=== PATIENT | male | born 1930 | race Caucasian/White ===

== ENCOUNTER 2016-10-20 11:10 | Emergency (ER) | payer MEDICARE, OTHER ==
[~2016-10-20] VITALS: Ht 162.6 cm; Wt 63.5 kg
--- NOTE | 2016-10-20 11:32 | PD ---
HPI Chief Complaint: abdominal pain and dizziness Time Seen by Provider: 11:19 Travel History International Travel<30 days: No Contact w/Intl Traveler<30days: No Traveled to known affect area: No History of Present Illness HPI This patient was at the office of [facility] and while checking out he became dizzy and lightheaded. They advised him to come to the emergency room. He has history of chronic epigastric pain for the last 3 months. He's had 4 CAT scans according to his and the last was yesterday in [place]. His abdominal pain and dizziness have improved at this time. He has seen GI for endoscopy/colonoscopy which is going to happen on 31 October. Symptoms severity at this time is mild. No alleviating factors. He has chronic A. fib on eliquis. No chest pain or syncope today. No alleviating factors. Duration of dizziness was 30 minutes. [facility] Social History Alcohol Use: No Tobacco Use: No Substance Use: No Allergies-Medications (Allergen,Severity, Reaction): Coded Allergies: No Known Allergies (Unverified , 10/20/16) Reported Meds & Prescriptions Reported Meds & Active Scripts Active Reported Terazosin (Terazosin HCl) 5 Mg Cap 5 Mg PO HS Zocor (Simvastatin) 40 Mg Tab 40 Mg PO HS Potassium Chloride CR (Potassium Chloride) 10 Meq Tab 10 Meq PO DAILY Omeprazole 20 Mg Cap 20 Mg PO DAILY Nystatin Topical (Nystatin) 100,000 unit/gm Cream 1 Applic TOPICAL BID Nitrostat SL (Nitroglycerin) 0.4 Mg Subl 0.4 Mg SL DIRECTED PRN 1 tablet under the tongue as needed for chest pain. Repeat every 5 minutes for a total of 3 DOSES or call 911 if NO relief. Metoprolol Tartrate 25 Mg Tab 12.5 Mg PO BID Metformin (Metformin HCl) 500 Mg Tab 500 Mg PO DAILY With a meal Memantine 10 Mg Tab 10 Mg PO BID Losartan (Losartan Potassium) 25 Mg Tab 25 Mg PO BID Furosemide 40 Mg Tab 40 Mg PO DAILY B-12 (Cyanocobalamin) 100 Mcg Tab 100 Mcg PO DAILY Benzonatate 100 Mg Cap 100 Mg PO BID PRN Aspirin 81 (Aspirin) 81 Mg Tabdr 81 Mg PO DAILY Tylenol Extra Strength (Acetaminophen) 500 Mg Tab 500 Mg PO TID PRN Review of Systems General / Constitutional: No: Fever Eyes: No: Visual changes HENT: Positive: Lightheadedness, No: Headaches Cardiovascular: No: Chest Pain or Discomfort Respiratory: No: Shortness of Breath Gastrointestinal: Positive: Abdominal Pain Genitourinary: No: Dysuria Musculoskeletal: No: Pain Skin: No Rash Neurologic: Positive: Dizziness, No: Weakness Psychiatric: No: Depression Endocrine: No: Polydipsia Hematologic/Lymphatic: No: Easy Bruising Physical Exam Narrative GENERAL: Well-nourished, well-developed patient in no apparent distress. SKIN: Warm and dry. HEAD: Atraumatic. Normocephalic. EYES: Pupils equal and round. No scleral icterus. No injection or drainage. ENT: No nasal bleeding or discharge. Mucous membranes pink and moist. NECK: Trachea midline. No JVD. CARDIOVASCULAR: Regular rate and rhythm. No murmur appreciated. RESPIRATORY: No accessory muscle use. Clear to auscultation. Breath sounds equal bilaterally. GASTROINTESTINAL: Abdomen soft, epigastrium is some tenderness without rebound or guarding , nondistended. Hepatic and splenic margins not palpable. MUSCULOSKELETAL: No obvious deformities. No clubbing. No cyanosis. No edema. NEUROLOGICAL: Awake and alert. No obvious cranial nerve deficits. Motor grossly within normal limits. Normal speech. PSYCHIATRIC: Appropriate mood and affect; insight and judgment normal. Data Data Last Documented VS Vital Signs Date Time Temp Pulse Resp B/P Pulse Ox O2 Delivery O2 Flow Rate FiO2 10/20/16 11:37 98.6 51 20 154/70 94 Room Air Orders Iv Access Insert/Monitor (10/20/16 11:25) Complete Blood Count With Diff (10/20/16 11:25) Comprehensive Metabolic Panel (10/20/16 11:25) Lipase (10/20/16 11:25) Electrocardiogram (10/20/16 ) Labs Laboratory Tests Test 10/20/16 10:30 White Blood Count 10.4 TH/MM3 Red Blood Count 3.27 MIL/MM3 Hemoglobin 11.3 GM/DL Hematocrit 32.8 % Mean Corpuscular Volume 100.4 FL Mean Corpuscular Hemoglobin 34.4 PG Mean Corpuscular Hemoglobin 34.3 % Concent Red Cell Distribution Width 12.6 % Platelet Count 99 TH/MM3 Mean Platelet Volume 9.5 FL Neutrophils (%) (Auto) 82.9 % Lymphocytes (%) (Auto) 9.6 % Monocytes (%) (Auto) 5.3 % Eosinophils (%) (Auto) 1.8 % Basophils (%) (Auto) 0.4 % Neutrophils # (Auto) 8.6 TH/MM3 Lymphocytes # (Auto) 1.0 TH/MM3 Monocytes # (Auto) 0.5 TH/MM3 Eosinophils # (Auto) 0.2 TH/MM3 Basophils # (Auto) 0.0 TH/MM3 CBC Comment AUTO DIFF Differential Comment AUTO DIFF CONFIRMED Platelet Estimate LOW Platelet Morphology Comment NORMAL Sodium Level 137 MEQ/L Potassium Level 3.8 MEQ/L Chloride Level 102 MEQ/L Carbon Dioxide Level 28.2 MEQ/L Anion Gap 7 MEQ/L Blood Urea Nitrogen 15 MG/DL Creatinine 1.17 MG/DL Estimat Glomerular Filtration 59 ML/MIN Rate Random Glucose 243 MG/DL Calcium Level 8.1 MG/DL Total Bilirubin 0.6 MG/DL Aspartate Amino Transf 10 U/L (AST/SGOT) Alanine Aminotransferase 17 U/L (ALT/SGPT) Alkaline Phosphatase 73 U/L Total Protein 6.9 GM/DL Albumin 3.5 GM/DL Lipase 185 U/L [facility] Medical Decision Making Medical Screen Exam Complete: Yes Emergency Medical Condition: Yes Medical Record Reviewed: Yes Differential Diagnosis Differential diagnosis includes pancreatitis, biliary colic, hepatitis, GERD, peptic ulcer disease. Narrative Course I have reviewed the patient's electronic medical record. Reviewed [facility] including medical history and CT scan from July which was normal IV placed I reviewed his EKG which shows A. fib but bradycardic Extended cardiac monitoring shows bradycardic A. fib around 60 CBC shows minor anemia and minor thrombocytopenia Metabolic profile reasonably normal and hyperglycemia Lipase is normal LFTs are reasonably normal On reassessment the patient states he feels quite well. His abdominal pain and dizziness of both gone away Stable for outpatient follow-up He's had multiple CTs recently and I don't feel he needs repeat imaging today Diagnosis Primary Impression: Dizziness Additional Impression: Abdominal pain Qualified Code: R10.13 - Epigastric pain Additional Instructions: The patient was advised to follow up with their physician and return if they worsen. Med/Other Pt SpecificInfo: Other Disposition: 01 DISCHARGE HOME Condition: Stable Serafin Guthrie MD Oct 20, 2016 11:32
[2016-10-20 11:37] VITALS: BP 154/70; PULSE 51; RESP 20; TEMP 98.6; O2SAT 94
[2016-10-20 11:47] LABS: AUTOMATED NEUTROPHIL # 8.6 TH/MM3 (1.8-7.7); BASOPHIL % 0.4 % (0.0-2.0); EOSINOPHIL # 0.2 TH/MM3 (0-0.4); EOSINOPHIL % 1.8 % (0.0-4.0); HEMATOCRIT 32.8 % (39.0-51.0); LYMPH % 9.6 % (9.0-44.0); MEAN CELL VOLUME 100.4 FL (80.0-100.0); MEAN CORPUSCULAR HEMOGLOBIN 34.4 PG (27.0-34.0); MEAN CORPUSCULAR HGB CONC 34.3 % (32.0-36.0); MONO % 5.3 % (0.0-8.0); NEUT % 82.9 % (16.0-70.0); PLATELET COUNT 99 TH/MM3 (150-450); RED BLOOD COUNT 3.27 MIL/MM3 (4.50-5.90); RED CELL DISTRIBUTION WIDTH 12.6 % (11.6-17.2); WHITE BLOOD COUNT 10.4 TH/MM3 (4.0-11.0)
[2016-10-20 11:55] LABS: HEMO FLAGS AUTO DIFF
[2016-10-20 12:04] LABS: ALT (GPT) 17 U/L (12-78); ANION GAP 7 MEQ/L (5-15); AST (GOT) 10 U/L (15-37); BICARBONATE 28.2 MEQ/L (21.0-32.0); BLOOD UREA NITROGEN 15 MG/DL (7-18); CHLORIDE 102 MEQ/L (98-107); GLOMERULAR FILTRATION RATE 59 ML/MIN (>89); POTASSIUM 3.8 MEQ/L (3.5-5.1); SODIUM (NA) 137 MEQ/L (136-145)
[2016-10-20 12:06] LABS: ALKALINE PHOSPHATASE 73 U/L (45-117); TOTAL BILIRUBIN ADULT 0.6 MG/DL (0.2-1.0)
[2016-10-20] MEDS ORDERED: POTA10TA8 PO (12:16)
[2016-10-20] MEDS ORDERED: FURO40TA PO (12:16)
[2016-10-20] MEDS ORDERED: ASPI-110 PO (12:16)
[2016-10-20] MEDS ORDERED: METF500T PO (12:16)
[2016-10-20] MEDS ORDERED: MEMA1TAB2 PO (12:16)
[2016-10-20] MEDS ORDERED: LOSA25TA PO (12:16)
[2016-10-20] MEDS ORDERED: NITR0.4S SL (12:16)
[2016-10-20] MEDS ORDERED: BENZ1CAP8 PO (12:16)
[2016-10-20] MEDS ORDERED: B-12100T PO (12:16)
[2016-10-20] MEDS ORDERED: TERA5CAP3 PO (12:16)
[2016-10-20] MEDS ORDERED: ZOCO40TA PO (12:16)
[2016-10-20] MEDS ORDERED: METO25TA3 PO (12:16)
[2016-10-20] MEDS ORDERED: NYST15T TOPICAL (12:16)
[2016-10-20] MEDS ORDERED: OMEP20CA2 PO (12:16)
[2016-10-20] MEDS ORDERED: ACET-703 PO (12:16)
[2016-10-20 12:41] LABS: PLATELET ESTIMATE SMEAR LOW (NORMAL); PLATELET MORPHOLOGY NORMAL (NORMAL); SCAN/DIFF AUTO DIFF CONFIRMED
--- NOTE | 2016-10-20 14:24 | EKG ---
Date Performed: 10/20/2016 Time Performed: 11:53:45 PTAGE: 86 years EKG: SINUS BRADYCARDIA WITH FIRST DEGREE AV BLOCK WITH OCCASIONAL VENTRICULAR PREMATURE COMPLEXE S MARKED LEFT AXIS DEVIATION MODERATE INTRAVENTRICULAR CONDUCTION DELAY ST DEVIATION AND MODERATE T-W AVE ABNORMALITY, CONSIDER LATERAL ISCHEMIA ABNORMAL ECG NO PREVIOUS TRACING DOCTOR: Aaliyah Arita Interpretating Date/Time 10/20/2016 14:21:26
[2016-10-20 14:50] VITALS: BP 151/68; PULSE 56; RESP 14; O2SAT 100
[2016-10-20 15:00] VITALS: BP 169/72; PULSE 54; RESP 20; O2SAT 99
== END 2016-10-20 15:27 | disposition home or self-care (01) ==
LOC: NEPC 11:10
DX: R42 Dizziness and giddiness (principal); R10.13 Epigastric pain; I48.2 Chronic atrial fibrillation; I44.0 Atrioventricular block, first degree; R94.31 Abnormal electrocardiogram [ECG] [EKG]
CPT/HCPCS: 80053; 83690; 85025; 93005